=== PATIENT | female | born 1985 | race Caucasian/White ===

== ENCOUNTER 2020-02-14 11:54 | Emergency (ER) | payer SELFPAY ==
[~2020-02-14] VITALS: Ht 170.2 cm; Wt 56.7 kg
[2020-02-14 12:01] VITALS: BP_SYST 118
[2020-02-14] MEDS ORDERED: LIDOCAINE 1% 10 MG/ML, 20 ML MDV INJ ONE (12:15)
[2020-02-14] MEDS ORDERED: DIPH-TET-PERTUS Vaccine 0.5 ML VIAL (ADACEL) I.M. ONE (12:15)
[2020-02-14] MEDS ORDERED: BACITRACIN 1 GM OINT TP ONE (12:15)
[2020-02-14 12:50] VITALS: BP_SYST 118
== END 2020-02-14 12:04 | disposition home or self-care (01) ==
LOC: SED 11:54
DX: L02.416 Cutaneous abscess of left lower limb (principal)
CPT/HCPCS: 10060; 90715; 99283; J2001